=== PATIENT | female | born 1980 | race American Indian/Alaskan Native ===

== ENCOUNTER 2018-05-06 23:54 | Emergency (ER) | payer MEDICARE ==
[2018-05-07] MEDS ORDERED: NACL 0.9% 1000 ML 1,000 ML IV ONE (00:28)
[2018-05-07] MEDS ORDERED: MORPHINE IV ONE ×2 (00:28→02:47)
[2018-05-07 00:35] VITALS: BP 120/71
[2018-05-07 00:49] LABS: Basophils # (Auto) 0.1 K/mm3 (0.0-0.1); Basophils % (Auto) 0.7 % (0.0-1.8); Eosinophils # (Auto) 0.1 K/mm3 (0.0-0.4); Eosinophils % (Auto) 0.6 % (0.0-4.3); Hematocrit 34.3 % (30.3-42.9); Hemoglobin 11.4 gm/dl (10.1-14.3); Lymphocytes # (Auto) 2.1 K/mm3 (1.2-5.4); Lymphocytes % (Auto) 17.5 % (13.4-35.0); Mean Corpuscular HGB Conc 33 % (30-34); Mean Corpuscular Volume 83 fl (79-97); Monocytes # (Auto) 1.1 K/mm3 (0.0-0.8); Monocytes % (Auto) 9.3 % (0.0-7.3); Platelet Count 435 K/mm3 (140-440); Red Blood Count 4.15 M/mm3 (3.65-5.03); Red Cell Distribution Width 14.9 % (13.2-15.2)
[2018-05-07 01:05] LABS: BUN/Creatinine Ratio 13; Blood Urea Nitrogen 8 mg/dL (7-17); Calcium 8.9 mg/dL (8.4-10.2); Hemolysis Index 5
[2018-05-07 01:07] LABS: Alanine Aminotransferase 11 units/L (7-56); Albumin 3.9 g/dL (3.9-5)
[2018-05-07 01:09] LABS: Bilirubin,Direct < 0.2 mg/dL (0-0.2)
[2018-05-07] MEDS ORDERED: MORPHINE ONE ×2 (01:32→03:01)
--- NOTE | 2018-05-07 01:48 | Emergency Department Report ---
ED Abdominal Pain HPI - General Chief Complaint: Wound/Laceration Stated Complaint: ABD PAIN Time Seen by Provider: 05/07/18 00:27 Source: patient, EMS Mode of arrival: Stretcher Limitations: No Limitations - History of Present Illness Initial Comments: 37-year-old female presents to the ED with lower abdominal pain and drainage from wound. Patient has history of Crohn's disease with anal fistulas and colostomy in place. Patient states a year ago she was seen in an outside hospital and it was thought that she had a pelvic abscess. Patient states that the colorectal surgeon in placed a drain in her suprapubic abdomen. Patient states the drain came out and the wound did not heal properly. Patient states she has chronic pain in this area, however the pain worsened on yesterday. She also began to have fluid leaking from the wound. Patient is also complaining of rectal pain from her anal fistulas. Patient denies fever, vomiting. Patient states she was seen at [facility] on yesterday for this problem, however, there was some miscommunication by the staff there and patient was placed on a 1013 and sent to [facility]. Patient states she was not worked up for her abdominal pain or wound drainage. States was diagnosed with a UTI and placed on Bactrim. Patient currently has a sitter at the bedside. MD Complaint: abdominal pain -: days(s) (1) Location: suprapubic Radiation: none Severity: severe Severity scale (0 -10): 7 Consistency: constant Improves With: nothing Worsens With: nothing Associated Symptoms: denies: nausea, vomiting, fever - Related Data Previous Rx's Medication Instructions Recorded Last Taken Type Clindamycin [Clindamycin CAP] 300 mg PO Q8H 10 Days #30 cap 05/07/18 Unknown Rx HYDROcodone/APAP 5-325 [[place] 1 each PO Q6HR PRN #7 tablet 05/07/18 Unknown Rx 5/325] Allergies Allergy/AdvReac Type Severity Reaction Status Date / Time aspirin Allergy Rash Verified 05/07/18 02:08 codeine Allergy Nausea Verified 05/07/18 02:08 ibuprofen Allergy Unknown Verified 05/07/18 02:08 tramadol Allergy Unknown Verified 05/07/18 02:08 ED Review of Systems ROS: Stated complaint: ABD PAIN Other details as noted in HPI Comment: All other systems reviewed and negative Constitutional: denies: chills, fever Gastrointestinal: abdominal pain, other (reports rectal pain). denies: nausea, vomiting ED Past Medical Hx - Past Medical History Previous Medical History?: Yes Hx Psychiatric Treatment: Yes (SI) Additional medical history: Chrohns, bowel obstruction, Chronic UTI's - Surgical History Past Surgical History?: Yes Additional Surgical History: colostomy, anal fistula repair - Social History Smoking Status: Never Smoker Substance Use Type: Prescribed - Medications Home Medications: Home Medications Medication Instructions Recorded Confirmed Last Taken Type Clindamycin [Clindamycin CAP] 300 mg PO Q8H 10 Days #30 cap 05/07/18 Unknown Rx HYDROcodone/APAP 5-325 [[place] 1 each PO Q6HR PRN #7 tablet 05/07/18 Unknown Rx 5/325] ED Physical Exam - General Limitations: No Limitations General appearance: alert, in no apparent distress - Head Head exam: Present: atraumatic, normocephalic - Eye Eye exam: Present: normal appearance - ENT ENT exam: Present: mucous membranes moist - Neck Neck exam: Present: normal inspection - Respiratory Respiratory exam: Present: normal lung sounds bilaterally. Absent: respiratory distress - Cardiovascular Cardiovascular Exam: Present: normal rhythm, tachycardia - GI/Abdominal GI/Abdominal exam: Present: soft, tenderness (suprapubic), other (colostomy in place in RLQ; small open wound in suprapubic area with small amt of purulent drainage) ED Course Vital Signs 05/07/18 00:28 Temperature 98.2 F Pulse Rate 108 H Respiratory 18 Rate Blood Pressure 120/71 [Left] O2 Sat by Pulse 100 Oximetry ED Medical Decision Making - Lab Data Result diagrams: 05/07/18 00:34 05/07/18 00:34 - Radiology Data Radiology results: report reviewed, image reviewed - Medical Decision Making 37 yo F with Crohn's. Pt has cellulitis around fistula site on lower abdominal wall. No abscess or fluid collection seen on CT. Pt afebrile. WBCs only minimally elevated. Will give dose of IV clindamycin here in ED and discharge w/ prescription. Patient comfortable, vitals normal. Follow-up info given for [facility]. Return precautions given. - Differential Diagnosis cellulitis, abscess, fistula Critical care attestation.: If time is entered above; I have spent that time in minutes in the direct care of this critically ill patient, excluding procedure time. ED Disposition Clinical Impression: Crohns disease, Cellulitis Disposition: TO HOME OR SELFCARE Is pt being admited?: No Condition: Stable Instructions: Cellulitis (ED) Prescriptions: Clindamycin [Clindamycin CAP] 300 mg PO Q8H 10 Days #30 cap HYDROcodone/APAP 5-325 [[place] 5/325] 1 each PO Q6HR PRN #7 tablet PRN Reason: Pain Referrals: [facility] [Provider Group] - 3-5 Days Time of Disposition: 02:51
--- NOTE | 2018-05-07 02:26 | Cat Scan Report ---
FINAL REPORT PROCEDURE: CT ABDOMEN PELVIS W CON TECHNIQUE: Computerized axial tomography of the abdomen and pelvis was performed after the IV inject ion of iodinated nonionic contrast. HISTORY: hx Crohn's, suprapubic pain and drainage COMPARISON: No prior studies are available for comparison. FINDINGS: Visualized lower thorax: No significant abnormality. Liver: Normal size and attenuation. Spleen: Normal size and attenuation. Gallbladder and biliary system: Normal. Pancreas: Normal. Adrenals: Normal. Kidneys: Normal. 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 There is a right lower quadrant ileostomy.. There is no b owel obstruction or enteritis. Lymph nodes and mesentery: Normal. Vasculature: Normal. Bladder: Normal. Reproductive organs: Uterus is unremarkable. There is a 2 centimeter cyst in the left ovary.. Peritoneum: There is no ascites or free air, abscess or adenopathy. Musculoskeletal structures: No significant abnormality. Other: There is skin thickening and induration of the subcutaneous soft tissues of the lower anterior abdominal wall. There is a fistula tract containing air extending from the subcutaneous soft tissues to the skin surface in this area to the right of midline. Findings suggest cellulitis. No discrete a bscess is identified.. 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 There is a right lower quadrant ileostomy.. There is no bowel obstr uction or enteritis. There is a 2 centimeter cyst in the left ovary.. There is no ascites or free air, abscess or adenopathy. There is skin thickening and induration of the subcutaneous soft tissues of the lower anterior abdomi nal wall. There is a fistula tract containing air extending from the subcutaneous soft tissues to the skin surface in this area to the right of midline. Findings suggest cellulitis. No discrete abscess is identified..
[2018-05-07] MEDS ORDERED: CLEOCIN 900 MG/50 mL 900 MG/50 ML BAG IV ONE (02:47)
== END 2018-05-07 06:49 | disposition home or self-care (01) ==
LOC: ED 23:54
DX: K50.90 Crohn's disease, unspecified, without complications (principal); L03.311 Cellulitis of abdominal wall; Z88.6 Allergy status to analgesic agent; Z88.5 Allergy status to narcotic agent
CPT/HCPCS: 36415; 74177; 80048; 80076; 84703; 85025; 96361; 96365; 96366; 96375; 96376; 99284; J2270; J7030; Q9967